=== PATIENT | male | born 1980 | race Caucasian/White ===

== ENCOUNTER 2018-01-07 18:42 | Emergency (ER) | payer SELFPAY, MEDICAID ==
[2018-01-07] MEDS: predniSONE 20 MG TAB PO (19:15)
[2018-01-07] MEDS: IBUPROFEN 600 MG TAB PO (19:15)
== END 2018-01-07 21:35 | disposition home or self-care (01) ==
LOC: FTE 18:42
DX: G51.0 Bell's palsy (principal)
CPT/HCPCS: 70450; 70480; 99285-25